=== PATIENT | female | born 1965 | race Caucasian/White ===

== ENCOUNTER 2018-10-19 11:20 | Day surgery (SDC) | payer BC ==
[2018-10-18 15:41] VITALS: Ht 157.5 cm; Wt 79.0 kg
[~2018-10-19] VITALS: Ht 157.5 cm; Wt 79.0 kg
[~2018-10-19 11:20] MED LIST: CEFAZOLIN 2 GM/50 ML (PMX) 50 ML IVPB SCH; SOD CHLORIDE 0.9% 1,000 ML IV SCH
[2018-10-19 13:12] VITALS: BP 126/76; PULSE 82; RESP 18
[2018-10-19] MEDS ORDERED: BUPIVACAINE 0.5%/EPI (SDV) 30 ML INJ ONE (15:24)
[2018-10-19] MEDS ORDERED: HYDROmorphONE 1 MG/5 ML IV SYRINGE IV PRN ×2 (15:30)
--- NOTE | 2018-10-19 15:30 | PREAC ---
Date/Time of Note Date/Time of Note DATE: 10/19/18 TIME: 15:29 Anesthesia Eval and Record Evaluation Time Pre-Procedure Interview DATE: 10/19/18 TIME: 15:29 Age 52 Sex female NPO: 8 hrs Preoperative diagnosis back mass Planned procedure excision of back mass Past Medical History Past Medical History: Includes GI: Obesity Surgery & Anesthesia Issues No known issue Meds Anticoagulation: No Beta Sandrine within 24 hr: No Reason Beta Sandrine not given: Pt. not on B-Sandrine No Active Prescriptions or Reported Meds Current Medications Cefazolin Sodium/ Dextrose 50 ml @ 100 mls/hr PREOP IVPB ; Start 10/19/18 at 06:30; Stop 10/19/18 at 18:00 Sodium Chloride 1,000 ml @ 75 mls/hr [id number] IV Last administered on 10/19/18at 13:17; Admin Dose 75 MLS/HR; Start 10/19/18 at 06:30; Stop 10/19/18 at 20:00 Meds reviewed: Yes Allergies Coded Allergies: No Known Allergy (Unverified , 10/19/18) Allergies Reviewed: Yes Labs/Studies Labs Reviewed: Reviewed by anesthesiologist Result Diagram: 10/19/18 1300 10/19/18 1300 Laboratory Tests 10/19/18 13:00 test: Negative Pre-procedure Exam Last vitals Vital Signs Date Temp Pulse Resp B/P (MAP) Pulse Ox O2 O2 Flow FiO2 Time Delivery Rate 10/19/18 97.0 82 18 126/76 94 Room Air 13:12 (93) Airway: Adequate mouth opening, Adequate thyromental dist Mallampati: Mallampati I Teeth: Normal Lung: Normal Heart: Normal ASA Physical Status ASA physical status: 1 Emergency: None Pre-operative Attestations Prior to commencing anesthesia and surgery, the patient was re-evaluated, there was verification of: *The patient's identity *The results of appropriate recent lab work and preoperative vital signs *The above evaluation not changing prior to induction *Anesthetic plan, risk benefits, alternative and complications discussed with patient/family; questions answered; patient/family understands, accepts and wishes to proceed. JEROME MACIEL DO Oct 19, 2018 15:30
[2018-10-19] MEDS ORDERED: LIDOCAINE 1%/EPI 30 ML INJ ONE (15:40)
[2018-10-19] MEDS ORDERED: BUPIVACAINE 0.25% (MPF) 30 ML INJ ONE (15:40)
[2018-10-19] MEDS ORDERED: FENTAnyl 50 MCG/ML VIAL ONE (15:56)
[2018-10-19] MEDS ORDERED: KETAMINE (50 MG/ML) 10 ML VIAL ONE (15:56)
[2018-10-19] MEDS ORDERED: MIDAZOLAM 1 MG/ML 2 ML INJ ONE (15:56)
[2018-10-19] MEDS ORDERED: CEFAZOLIN 1 GM INJ ONE (15:59)
[2018-10-19] MEDS ORDERED: KETOROLAC 30 MG INJ ONE (16:00)
[2018-10-19 16:45] VITALS: BP 131/53; PULSE 77; RESP 22
[2018-10-19 16:52] VITALS: BP 141/62; PULSE 72; RESP 23
--- NOTE | 2018-10-19 16:56 | PAC ---
Date/Time of Note Date/Time of Note DATE: 10/19/18 TIME: 16:55 Post-Anesthesia Notes Post-Anesthesia Note Last documented vital signs Vital Signs Date Temp Pulse Resp B/P (MAP) Pulse Ox O2 O2 Flow FiO2 Time Delivery Rate 10/19/18 97.0 82 18 126/76 94 Room Air 13:12 (93) Activity: WNL Respiratory function: WNL Cardiovascular function: WNL Mental status: Baseline Pain reasonably controlled: Yes Hydration appropriate: Yes Nausea/Vomiting absent: Yes JEROME MACIEL DO Oct 19, 2018 16:56
[2018-10-19 16:57] VITALS: BP 125/63; PULSE 74; RESP 15
--- NOTE | 2018-10-19 16:57 | OPR ---
Date/Time of Note Date/Time of Note DATE: 10/19/18 TIME: 16:53 Operative Report Procedure Date: Oct 19, 2018 Preoperative Diagnosis Upper back mass Postoperative Diagnosis Upper back mass Operation/Procedure Performed Excision of upper back mass Surgeon see signature line Media Consultant Outside Sales None Anesthesia Type: MAC Anesthesiologist: JEROME MACIEL DO Estimated Blood Loss: minimal Transfusion none Specimen Upper back mass Grafts/Implants none Complications none Pt Condition Post Procedure: stable Disposition: PACU Indications Patient is a 52-year-old female who presented to the office complaining of a mass of the upper back. She reported growth and discomfort. She was scheduled for elective excision for symptom relief and definitive pathological diagnosis. All risks and benefits of the procedure including, but not limited to: Wound infection, excessive bleeding, postoperative seroma/hematoma formation, mass recurrence, etc. were all expanded patient full detail. The patient fully understood and wished to proceed with the procedure. Informed consent was obtained. Procedure Description The patient was brought to the operating room and placed on the operating table in the left lateral decubitus position with the right side up. Bilateral sequential compression devices were placed on both lower extremities. A dose of broad-spectrum perioperative intravenous antibiotics was given. The mass which was located in the mid upper back was preoperatively marked and confirmed with the patient in the holding area. After achieving adequate sedation the patient's back was then prepped and draped in standard surgical fashion. After performance of the surgical timeout 1% lidocaine with epinephrine was injected in a radial fashion around the mass creating a field block. An elliptical incision was then made with a 15 blade scalpel encompassing the punctate sinus opening in the middle of the mass. Incision was carried down through the skin and into the dermis using sharp dissection. A mass consistent with epidermal inclusion cyst was identified. It extended into the deep subcutaneous tissues. The cyst lining was very friable, therefore, in the course of dissecting it from the surrounding tissues the capsule was entered. Sebum was expressed and suctioned out. The sac was then dissected free in its entirety from the deep subcutaneous tissues. It was transected at its base and passed off the field specimen. The wound cavity was then irrigated with warm saline and the irrigant returned clear. Hemostasis was inspected for and noted to be total. 0.25% Marcaine was then injected around the incision. Incision was then closed in layers using interrupted 3-0 Vicryl sutures for the dermal layer. The skin was reapproximated using a running 3-0 Monocryl suture in subcuticular fashion. Incision was cleaned and Dermabond was applied. Patient was awoken from anesthesia and transferred to the recovery room in stable condition. All counts were correct at the end of the case x2 FLORENCE BLANCO MD Oct 19, 2018 16:57
[2018-10-19] MEDS ORDERED: IBUPROFEN 600 MG TAB PO PRN (17:00)
[2018-10-19] MEDS ORDERED: ONDANSETRON 4 MG INJ IV PRN (17:00)
[2018-10-19 17:16] VITALS: BP 138/68; PULSE 74; RESP 18
== END 2018-10-19 17:45 | disposition home or self-care (01) ==
LOC: SDS 11:20
PROVIDERS: ATTEND Surgery
DX: L72.0 Epidermal cyst (principal)
CPT/HCPCS: 11403; 71045; 80053; 85025; 85610; 85730; 88307; 93005; J0690; J1885; J2250; J3010; Z7512; Z7610